=== PATIENT | female | born 1965 | race Asian ===

== ENCOUNTER → 2017-03-20 | Outpatient (CLI) | payer BC ==
--- NOTE | 2017-03-21 12:10 | MAMMOGRAPHY REPORT ---
BILATERAL DIGITAL SCREENING MAMMOGRAM TOMOSYNTHESIS WITH CAD: 03/20/2017 CLINICAL HISTORY: Routine screening. Patient has no complaints. TECHNIQUE: Breast tomosynthesis in addition to standard 2D mammography was performed. Current study was also evaluated with a Computer Aided Detection (CAD) system. COMPARISON: Comparison is made to exams dated: 03/19/2016 mammogram, 03/17/2015 mammogram, 03/16/2014 m ammogram, 09/21/2013 mammogram, 03/04/2013 mammogram, and 03/02/2013 mammogram - [facility]. BREAST COMPOSITION: The tissue of both breasts is extremely dense, which lowers the sensitivity of m ammography. FINDINGS: There are 2 stable ribbon shaped metallic biopsy markers in the left breast. Diffuse bilat eral round and punctate microcalcifications. No new suspicious mass, architectural distortion or clu ster of microcalcifications is seen. IMPRESSION: ACR BI-RADS CATEGORY 1: NEGATIVE There is no mammographic evidence of malignancy. A 1 year screening mammogram is recommended. The pa tient will receive written notification of the results. Approximately 10% of breast cancers are not detected with mammography. A negative mammographic report should not delay biopsy if a clinically suggestive mass is present. Thelma Foster M.D. ay/:03/20/2017 16:03:50 Fertilizer Applicator: Lata JOLLEY(Jazmin)(Sourav)(BD), [facility] letter sent: Normal 1/2 BI-RADS Code: ACR BI-RADS Category 1: Negative
== END | disposition home or self-care (01) ==
LOC: C.MAMM 08:40
PROVIDERS: ATTEND Obstetrics & Gynecology
DX: Z12.31 Encounter for screening mammogram for malignant neoplasm of breast (principal)

== ENCOUNTER → 2017-06-28 | Outpatient (CLI) | payer BC | END | disposition home or self-care (01) | LOC: C.PAPS 13:42 | PROVIDERS: ATTEND Obstetrics & Gynecology | DX: Z01.419 Encounter for gynecological examination (general) (routine) without abnormal findings (principal) ==

== ENCOUNTER → 2017-09-05 | Outpatient (CLI) | payer BC | END | disposition home or self-care (01) | LOC: C.LABSPEC 14:22 | PROVIDERS: ATTEND Obstetrics & Gynecology | DX: B37.3 Candidiasis of vulva and vagina (principal) ==

== ENCOUNTER → 2018-04-07 | Outpatient (CLI) | payer BC ==
--- NOTE | 2018-04-08 14:44 | MAMMOGRAPHY REPORT ---
BILATERAL DIGITAL SCREENING MAMMOGRAM TOMOSYNTHESIS WITH CAD: 04/07/2018 CLINICAL HISTORY: Routine screening. Patient has no complaints. TECHNIQUE: The study was acquired using full field digital technology and interpreted from soft copy. Breast tomosynthesis in addition to standard 2D mammography was performed. Current study was also ev aluated with a Computer Aided Detection (CAD) system. COMPARISON: Comparison is made to exams dated: 03/20/2017 mammogram, 03/19/2016 mammogram, 03/17/2015 m ammogram, 03/16/2014 mammogram, and 09/21/2013 mammogram - [facility]. BREAST COMPOSITION: The tissue of both breasts is extremely dense, which lowers the sensitivity of ma mmography. FINDINGS: We will ribbon-shaped biopsy marker clips in the superior left breast. Scattered benign-ap pearing round calcifications. No suspicious mass, architectural distortion or cluster of microcalcifi cations is seen. IMPRESSION: ACR BI-RADS CATEGORY 1: NEGATIVE There is no mammographic evidence of malignancy. A 1 year screening mammogram is recommended.( [id number]) The patient will receive written notification of the results. Some breast cancers are not detected with mammography. A negative mammographic report should not [place] biopsy if a clinically suggestive mass is present. Thelma Foster M.D. ay/:04/07/2018 16:31:42 Tank Calibrator: RT Nidhi(R)(M), [facility] letter sent: Normal 1/2 BI-RADS Code: ACR BI-RADS Category 1: Negative
== END | disposition home or self-care (01) ==
LOC: C.MAMM 11:29
PROVIDERS: ATTEND Obstetrics & Gynecology
DX: Z12.31 Encounter for screening mammogram for malignant neoplasm of breast (principal)